=== PATIENT | female | born 1950 | race Caucasian/White ===

== ENCOUNTER 2019-07-31 18:10 | Inpatient (IN) ==
--- NOTE | 2019-07-31 18:39 | PROVIDER DOCUMENTATION ---
This chart was entered by Demario Garza Scribe, acting as scribe for Genet Pino CRNP. HPI-Neurological Disorder - General Chief Complaint: Numbness Stated Complaint: NUMBNESS Time Seen by Provider: 07/31/19 18:22 Source: patient Allergies/Adverse Reactions: Patient Allergies Allergy/AdvReac Type Severity Reaction Status Date / Time cefazolin sodium * Allergy SHORTNESS Verified 06/19/14 19:18 [From Ancef] OF BREATH codeine Allergy SHORTNESS Verified 06/19/14 19:18 OF BREATH duloxetine [From Cymbalta] Allergy SHORTNESS Verified 10/30/17 14:16 OF BREATH gabapentin Allergy SHORTNESS Verified 10/30/17 14:16 OF BREATH oxycodone HCl * [From Tylox] Allergy SHORTNESS Verified 06/19/14 19:18 OF BREATH Penicillins Allergy SHORTNESS Verified 06/19/14 19:18 OF BREATH Home Medications: Home Medication List Medication Instructions Recorded Confirmed Last Taken Type Hydrocodone/Acetaminophen [[place] 1 tab PO Q4-6H PRN PRN 06/16/14 06/19/14 06/19/14 History 7.5-325 Tablet] Omeprazole 40 mg PO DAILY 06/16/14 06/19/14 06/19/14 History Rivaroxaban [Xarelto] 20 mg PO DAILY 06/16/14 06/19/14 06/19/14 History Esomeprazole [Nexium] 40 mg PO DAILY 06/19/14 06/19/14 06/19/14 History Methocarbamol [Robaxin-750] 750 mg PO TID 06/19/14 06/19/14 06/19/14 History Sulfamethoxazole/Trimethoprim 1 each PO BID #14 tablet 06/19/14 Unknown Rx [Bactrim Ds Tablet] - History of Present Illness-Neuro Nature of Presenting Problem: 69 y/o F presents to the ED c/o left sided arm weakness, left sided arm numbness and left sided facial numbness. Patient reports symptoms started x1 week ago and were intermittent but worsened around 4-5 hours ago. Patient has a known history of Carotid artery disease and PTE. Patient denies chest pain, shortness of breath, headache, dizziness and all other symptoms. Severity: reports: moderate Onset/Duration: reports: 1 week ago Timing: reports: intermittent, getting worse Context: reports: none Any recent trauma/injury?: reports: none New weakness or altered sensation location:: reports: LUE Cognitive Baseline: alert, oriented x3 Gait Baseline: walks without assistance Associated Symptoms: reports: weakness Similar Symptoms Previously?: Yes Recently seen or treated by another doctor?: No Review of Systems - Adult - REVIEW OF SYSTEMS - ADULT Constitutional: denies: chills, fever Eyes: reports: no symptoms reported. denies: see HPI, discharge, dry eyes, decreased vision, blurred vision, double vision, eye pain, redness, other Ears, Nose, Mouth & Throat: reports: no symptoms reported. denies: see HPI, ear discharge, ear pain, hearing loss, tinnitus, epistaxis, sinus problem, nose pain, loose teeth, mouth/dental pain, mouth swelling, hoarseness, throat pain, throat swelling, other Cardiovascular: reports: no symptoms reported Respiratory: reports: no symptoms reported. denies: shortness of breath, wheezing Gastrointestinal: reports: no symptoms reported. denies: diarrhea, nausea, vomiting Genitourinary: reports: no symptoms reported Musculoskeletal: reports: see HPI Integumentary: reports: no symptoms reported. denies: see HPI, hives, hair loss, itching, mole changes, nail changes, rash, skin sores/ulcer, skin thickening, other Neurological: reports: see HPI, numbness (left arm; left side of face), other (left arm weakness). denies: dizziness/vertigo, headache/migraines Psychiatric: reports: no symptoms reported. denies: see HPI, anxiety, anti-depressant use, alcohol/drug dependence, depression, emotional problems, insomnia, panic attacks, suicidal thoughts, other Endocrine: reports: no symptoms reported. denies: see HPI, change in skin pigment, excessive sweating, goiter, cold intolerance, heat intolerance, increased hunger, increased thirst, polyuria, other Hematologic/Lymphatic: reports: blood clots (hx of). denies: no symptoms reported, see HPI, easy bruising, low blood count, lymphedema, prolonged bleeding, swollen lymph nodes, transfusions, other Allergic/Immunologic: reports: no symptoms reported. denies: see HPI, allergic reactions, allergic rhinitis, asthma, eczema, food allergy, frequent infections, hay fever, hives, positive PPD, urticaria, other Past History - Adult - PAST MEDICAL HISTORY-ADULT Review of Records: reports: Nursing Assessment Review, Medications Reviewed, Social history reviewed & non-contributory. Major Childhood Illnesses: reports: denies history Cardiovascular: reports: denies history Respiratory: reports: denies history Gastrointestinal: reports: denies history Obstetrical/Gynecological: reports: denies history Genitourinary: reports: denies history Musculoskeletal: reports: neck/back injury (bulging l4 and l5) Neurological: reports: TIA Endocrine/Immune: reports: other (bilateral PEs) Other Conditions: reports: denies history - PRIOR SURGERIES/PROCEDURES Surgical/Procedure History: reports: appendectomy, cholecystectomy, hysterectomy , gastric bypass, other (cysts removed from bilateral breasts) - IMMUNIZATION STATUS Childhood Immunizations: See Nurse Assessment Flu Vaccine: See Nurse Assessment - FAMILY HISTORY Family History: reviewed, not pertinent - SOCIAL HISTORY Smoking: quit greater than 1 year Physical Exam- Neurological - Physical Exam-Neuro Initial Vital Signs Reviewed: Yes General Appearance: alert, no apparent distress Eye Exam: bilateral eye: normal inspection, PERRL, EOMI HENMT: moist mucous membranes, normal ENT inspection Head Injury: no evidence of injury. 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 II-XII nml as tested Integumentary: normal color, warm/dry Psych/Mental Status: normal mood/affect, oriented x 3 Progress - PLAN OF CARE/RESULTS Progress/Plan/Lab Results: Vital Signs - 8 hr 07/31/19 18:17 Temperature 98.0 F Pulse Rate 87 Respiratory Rate 18 Blood Pressure 111/61 O2 Sat by Pulse Oximetry 95 Laboratory Results - last 24 hr 07/31/19 07/31/19 07/31/19 18:50 18:50 18:50 WBC 8.44 RBC 4.35 Hgb 12.1 Hct 38.9 MCV 89.4 MCH 27.8 MCHC 31.1 L RDW Std Deviation 13.4 Plt Count 224 MPV 10.5 H Immature Gran % (Auto) 0.1 Neut % (Auto) 59.5 Lymph % (Auto) 27.4 [place] % (Auto) 9.4 H Eos % (Auto) 2.8 Baso % (Auto) 0.8 Immature Gran # (Auto) 0.01 Neut # (Auto) 5.02 Lymph # (Auto) 2.31 [place] # (Auto) 0.79 H Eos # (Auto) 0.24 Baso # (Auto) 0.07 PT 11.8 INR 0.83 PTT (Actin FS) 21.6 L Sodium 140 Potassium 3.8 Chloride 109 H Carbon Dioxide 20 L Anion Gap 11 BUN 11 Creatinine 0.7 Estimated GFR/1.73 m2 > 60 BUN/Creatinine Ratio 16 Glucose 75 Calculated Osmolality 277 Calcium 8.6 L Total Bilirubin 0.20 AST 29 ALT 30 Alkaline Phosphatase 99 Troponin T High Sens Total Protein 7.1 Albumin 4.3 Globulin 3.0 Albumin/Globulin Ratio 2.0 07/31/19 18:50 WBC RBC Hgb Hct MCV MCH MCHC RDW Std Deviation Plt Count MPV Immature Gran % (Auto) Neut % (Auto) Lymph % (Auto) [place] % (Auto) Eos % (Auto) Baso % (Auto) Immature Gran # (Auto) Neut # (Auto) Lymph # (Auto) [place] # (Auto) Eos # (Auto) Baso # (Auto) PT INR PTT (Actin FS) Sodium Potassium Chloride Carbon Dioxide Anion Gap BUN Creatinine Estimated GFR/1.73 m2 BUN/Creatinine Ratio Glucose Calculated Osmolality Calcium Total Bilirubin AST ALT Alkaline Phosphatase Troponin T High Sens 8 Total Protein Albumin Globulin Albumin/Globulin Ratio Orders Category Date Time Status [facility] Routine AdmDCTranf 07/31/19 19:24 Active Activity - Bed Rest with BRP ORDERED Care 07/31/19 19:24 Active Cardiac Monitoring DIRECTED Care 07/31/19 18:28 Active Finger Stick Blood Sugar (ED) DIRECTED Care 07/31/19 18:28 Active Misc. NRSG Communication Order DIRECTED Care 07/31/19 18:28 Active Neurological Check Q4H Care 07/31/19 19:25 Active Saline Loc DIRECTED Care 07/31/19 19:24 Active Saline Loc NOW Care 07/31/19 18:28 Active Vital Signs Order ROUTINE Care 07/31/19 19:24 Active Heart Healthy Diet Diet 07/31/19 19:25 Active CHEST-PORTABLE [RAD] Stat Exams 07/31/19 18:[address] HEAD W/O CONTRAST [CT] Stat Exams 07/31/19 18:28 Completed CBC WITH ELECTRONIC DIFF [HEME] Stat Lab 07/31/19 18:50 Completed COMPREHENSIVE METABOLIC PANEL [CHEM] Stat Lab 07/31/19 18:50 Completed PROTIME WITH INR [COAG] Stat Lab 07/31/19 18:50 Completed PTT [COAG] Stat Lab 07/31/19 18:50 Completed TROPONIN T HIGH SENSITIVITY Stat Lab 07/31/19 18:50 Completed URINALYSIS W/POSS RFLX CULT [URINALYSIS] Stat Lab 07/31/19 18:28 Uncollected URINE DRUG SCREEN PL Stat Lab 07/31/19 18:28 Uncollected EKG [EKG] Stat Ther 07/31/19 18:28 Ordered Transfer/Admit Order [TRANSFER] Routine Transfer 07/31/19 19:25 Ordered PT IS NOT A CANDIDATE FOR TPA DUE TO ONSET OF SYMPTOMS INITIALLY ONE WEEK AGO AND ON RETURN OF SYMPTOMS > 4 HOURS 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 There are granulomata in the right upper lobe. Compared to 06/16/2014 there has been no significant change. IMPRESSION: COPD. Electronically signed by Brendan Matta 07/31/2019 7:05 PM [id number]/31/[id number] Interpreting Physician: Brendan Matta MD Dictated Date/Time: 07/31/191904 cc: Genet Pino; Ole Merritt MD) - CT/MRI 1 CT Study: Head Impression: See EMR Report ( EXAM: CT HEAD W/O CONTRAST 07/31/2019 HISTORY: CVA TECHNIQUE: This exam was performed using automated exposure control, adjustment of mA or kV according to patient size, and/or use of iterative reconstruction technique. COMMENT: There are patchy lucencies in the subcortical and periventricular white matter of both hemispheres. There is no evidence of mass effect, bleed or abnormal extra-axial fluid collection. There is mucosal thickening in the left sphenoid sinus and fluid. This was not the case on 03/30/2014. IMPRESSION: Chronic ischemic microvascular changes. Left sphenoid sinusitis. Electronically signed by Brendan Matta 07/31/2019 7:03 PM 07/31/[id number] Interpreting Physician: Brendan Matta MD Dictated Date/Time: 07/31/191900 cc: Genet Pino; Ole Merritt MD) - CONSULTS/PCP/HOSPITALIST Notification #1 *Consult/PCP/Hospitalist*: DR HAMMOND AT BEDSIDE Time Discussed: 18:30 Consult Disposition: Admit Departure - Departure Date of Disposition Decision: 07/31/19 Time of Disposition Decision: 19:15 DIAGNOSIS: Left-sided weakness Disposition: ADMITTED INPATIENT 09 Certified Medical Emergency: Emergent Condition: Stable Referrals and Follow-Ups: Ole Merritt MD [Primary Care Provider] - - Critical Care Note This patient required my direct & personal management of CC.: No Attestation - Physician/ ROZ Attestation Patient care was provided by Advanced Practice Provider:: Yes Advanced Practice Provider:: Genet Pino Advanced Practice Provider documentation review:: The Mid-level provider documentation, treatment plan and medical decision making was reviewed by the physician who agrees with all treatment and medical decision making by the MLP. The physician spent face to face time with patient:: No Advanced Practice Provider documentation review:: Supervising physician onsite and consulted in the evaluation and care of this patient. The physician did not have a face to face encounter with the patient. - NIH Stroke Scale NIH Type: Initial Evaluation Level of Consciousness: 0-Alert LOC Questions (ask month and age): 0-Answers Both Correctly LOC Commands (ask to open & close eyes;make a fist, let go): 0-Obeys Both Correctly Best Gaze (horizontal eye movement): 0-Normal Visual (use finger movement, counting or visual threat): 0-No Visual Loss Facial Palsy (show teeth or raise eyebrows & close eyes tght: 0-Symmetrical Mo vement Motor Function-left arm: 1-Drift Motor Function-right arm: 0-Normal Motor Function-left le-Normal Motor Function-right le-Normal Limb Ataxia(ridgfn-srkx-cpqwnf, or heel to morel): 1-Present in one limb Sensory(pin prick to face,arms,trunk,legs-compare side/side): 0-No Ataxia Best Language(name item/read sentence.Ex-Down to Earth): 0-No Aphasia Dysarthria(Pt read words or say words Ex.Mama,Tip-Top,Thanks: 0-Normal Articulation Extinction and Inattention: 0-Normal NIH Total Score: 3 This chart was documented by the indicated scribe, (Demario Garza, Scribe) and accurately reflects the services I performed and decisions made by me, Genet Pino CRNP, as attested by the provider's signature.
[2019-07-31 18:59] LABS: BASO# 0.07 X1000 (0.0-0.2); BASO% 0.8 % (0.0-0.8); EOS# 0.24 X1000 (0.0-0.7); EOS% 2.8 % (0.0-10.0); HEMATOCRIT 38.9 % (37.0-47.0); HEMOGLOBIN 12.1 g/dL (12.0-16.0); IMM GRAN# 0.01 X1000 (0.0-0.04); IMM GRAN% 0.1 % (0.0-0.5); LYMPH# 2.31 X1000 (1.2-3.4); LYMPH% 27.4 % (20.5-51.1); MCH 27.8 PG (27-31); MCHC 31.1 g/dL (33-37); MCV 89.4 FL (81-99); MONO# 0.79 X1000 (0.11-0.59); MONO% 9.4 % (1.7-9.3); MPV 10.5 FL (7.4-10.4); NEUT# 5.02 X1000 (1.4-6.5); NEUT% 59.5 % (42.2-75.2); PLT 224 X1000 (130-400); RBC 4.35 XMIL (4.2-5.4); RDW 13.4 % (11.5-14.5); WBC 8.44 X1000 (4.8-10.8)
--- NOTE | 2019-07-31 19:06 | Diag Imaging Result Doc PS360 ---
EXAM: CT HEAD W/O CONTRAST 07/31/2019 HISTORY: CVA TECHNIQUE: This exam was performed using automated exposure control, adjustment of mA or kV according to patient size, and/or use of iterative reconstruction technique. COMMENT: There are patchy lucencies in the subcortical and periventricular white matter of both hemispheres. There is no evidence of mass effect, bleed or abnormal extra-axial fluid collection. There is mucosal thickening in the left sphenoid sinus and fluid. This was not the case on 03/30/2014. IMPRESSION: Chronic ischemic microvascular changes. Left sphenoid sinusitis. Electronically signed by Brendan Matta 07/31/2019 7:03 PM
--- NOTE | 2019-07-31 19:08 | Diag Imaging Result Doc PS360 ---
EXAM: CHEST-PORTABLE 07/31/2019 HISTORY: CVA TECHNIQUE: AP portable at 1907 COMMENT: There is COPD. There are granulomata in the right upper lobe. Compared to 06/16/2014 there has been no significant change. IMPRESSION: COPD. Electronically signed by Brendan Matta 07/31/2019 7:05 PM
[2019-07-31 19:12] LABS: INR 0.83; PROTIME 11.8 Seconds (11.0-16.0)
[2019-07-31 19:13] LABS: PTT 21.6 Seconds (22.3-41.8)
[2019-07-31 19:17] LABS: AGAP 11; ALBUMIN 4.3 g/dL (3.5-5.0); ALKALINE PHOSPHATASE 99 U/L (32-104); BUN 11 mg/dL (8-22); CALCIUM 8.6 mg/dL (8.8-10.2); CHLORIDE 109 mmol/L (98-107); COSMO 277; CREATININE 0.7 mg/dL (0.5-0.9); ESTIMATED GFR > 60; GLUCOSE 75 mg/dL (70-104); GOT 29 U/L (10-30); GPT 30 U/L (10-36); POTASSIUM 3.8 mmol/L (3.5-5.1); SODIUM 140 mmol/L (136-145); TCO2 20 mmol/L (25-35); TOTAL PROTEIN 7.1 g/dL (6.3-8.3)
[2019-07-31 19:34] LABS: URINE SOURCE CLEAN CATCH
[2019-07-31 19:38] LABS: BILIRUBIN URINE NEGATIVE (NEGATIVE); BLOOD URINE NEGATIVE (NEGATIVE); COLOR YELLOW; GLUCOSE URINE 70 mg/dL (NEGATIVE); KETONE URINE NEGATIVE (NEGATIVE); LEUKOCYTES URINE SMALL (NEGATIVE); NITRITE URINE POSITIVE (NEGATIVE); PROTEIN URINE NEGATIVE (NEGATIVE); SP GRAVITY URINE 1.013; TURBIDITY URINE HAZY (CLEAR); UR EPITHELIAL CELLS <10 /HPF (<10); URINE BACTERIA 4+ /HPF; URINE RBC <10 /HPF (<10); UROBILINOGEN URINE NORMAL (NORMAL)
[2019-07-31 19:49] LABS: UR AMPHETAMINES QUAL NONE DETECTED (NONE DETECT); UR BARBITUATES QUAL NONE DETECTED (NONE DETECT); UR BENZODIAZEPIN QUAL NONE DETECTED (NONE DETECT); UR CANNABINOIDS QUAL NONE DETECTED (NONE DETECT); UR METHADONE QUAL NONE DETECTED (NONE DETECT); UR METHAMPHETAMINE QUAL NONE DETECTED (NONE DETECT); UR OPIATES QUAL PRESUMPTIVE POSITIVE (NONE DETECT); UR OXYCODONE QUAL NONE DETECTED (NONE DETECT); UR PCP QUAL NONE DETECTED (NONE DETECT); UR PROPOXYPHENE QUAL NONE DETECTED (NONE DETECT); UR TCA QUAL NONE DETECTED (NONE DETECT)
[2019-07-31 19:59] LABS: UR COCAINE QUAL NONE DETECTED (NONE DETECT)
[2019-07-31] MEDS: SEPTRA DS PO SCH (22:25)
--- NOTE | 2019-08-01 05:30 | EKG Report ---
Test Performed on : 07/31/2019 7:27:33 PM Test Reason : CVA Blood Pressure : / mmHG Vent. Rate : 081 BPM Atrial Rate : 081 BPM P-R Int : 140 ms QRS Dur : 072 ms QT Int : 364 ms P-R-T Axes : 057 059 078 degrees QTc Int : 422 ms Normal sinus rhythm. Nonspecific ST and T wave abnormality Abnormal ECG When compared with ECG of 17-JUN-2014 05:44, T wave inversion no longer evident in Anterior leads Unconfirmed Result
[2019-08-01] MEDS ORDERED: ZOFRAN IV PRN (08:49)
[2019-08-01] MEDS ORDERED: TYLENOL PO PRN (08:49)
[2019-08-01] MEDS ORDERED: FLU VACCINE IM ONE (09:00)
[2019-08-01] MEDS: CIPRO PO SCH ×2 (09:37→20:49)
[2019-08-01] MEDS: SEPTRA DS PO SCH ×2 (09:37→20:49)
[2019-08-01] MEDS: PAXIL PO SCH (09:38)
[2019-08-01] MEDS: ROBITUSSIN-DM PO PRN ×2 (10:56→17:41)
--- NOTE | 2019-08-01 12:55 | Vascular Study Report ---
EXAM: Carotid Ultrasound 07/31/2019 HISTORY: CVA TECHNIQUE: Carotid Doppler ultrasound COMMENT: There is some calcification in the right carotid bulb and heavy calcification in the external carotid on the right. There is calcific plaque in the proximal right internal carotid artery. Calcified plaque is also present in the left carotid bulb and proximal internal carotid. There is a peak systolic velocity of 256 cm/s in the proximal right internal carotid artery. This is consistent with a high-grade stenosis between 80-99%. There is a peak systolic velocity of 111 cm/s in the mid left internal carotid artery consistent with a stenosis of 40-59%. There is antegrade flow in both vertebral arteries. IMPRESSION: Stenosis of both internal carotid arteries, significantly on the right. Electronically signed by Brendan Matta 08/01/2019 12:53 PM
--- NOTE | 2019-08-01 14:56 | PROGRESS NOTE ---
DATE: 08/01/2019 SUBJECTIVE: Patient states overall she is feeling better. She has got more movement of her left hand, but still has some weakness. Notes that the numbness on her left cheek seems to have returned. Has no real weakness in her left lower extremity or in the remainder of her left upper extremity. PHYSICAL EXAMINATION: Vital Signs: Reviewed. Temperature 98 degrees, pulse 79, respiratory rate 18, blood pressure 109/46. General: Patient is awake, pleasant, in no distress. HEENT: Normocephalic. Neck: Supple. Cardiovascular: Regular rate. Chest: Clear. Abdomen: Soft. Extremities: Moves all extremities. 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 Neurologic: She is awake, alert, oriented. Tongue thrust normal. Speech is regular. Memory is intact. ASSESSMENT: 1. Cerebrovascular accident. 2. Carotid blockage. PLAN: We are going to continue patient in the hospital. Check carotid echo. Follow her blood pressures. Check cholesterol. Get Physical therapy involved. cc: Mukul Mckay MD MTDD
--- NOTE | 2019-08-01 15:40 | HISTORY AND PHYSICAL ---
CHIEF COMPLAINT: Left-sided weakness. HISTORY OF PRESENT ILLNESS: The patient is a very pleasant 69-year-old female who presented to the ER and was seen and examined by myself in the ER on the date of admission. She was noted to have some left hand weakness although she was able to move her biceps, triceps and deltoid with minimal issues. At that point, the left-sided numbness on her lower cheek had resolved. ALLERGIES: Ancef, codeine, Cymbalta, gabapentin, oxycodone and penicillin, all causing shortness of breath. MEDICATIONS: Do not have an active medication list, although in the past she has been on Xarelto and blood pressure medicine. PAST MEDICAL HISTORY: Patient notes that her blood pressure and cholesterol have been normal. Does note that she had bilateral PEs in the past for which she was on Xarelto. She has had a bulging disk at L4-L5. She has had a TIA in the past. States that she has been told she had some carotid blockage but was not severe enough for surgery. PAST SURGICAL HISTORY: She has an appendectomy, cholecystectomy, hysterectomy, gastric bypass, and cyst removal of bilateral breasts. FAMILY HISTORY: Noncontributory. No family history of strokes, although does have a family history of high blood pressure. SOCIAL HISTORY: Patient stopped smoking greater than a year ago. Does not drink or use illicit substances. REVIEW OF SYSTEMS: She denies any fevers, chills, cough, congestion. Denies any headaches, blurred vision, change in vision. Does have focal weakness and numbness of her left hand. States her leg is fine. Denies any dysuria, frequency, urgency, constipation, melena, hematochezia. PHYSICAL EXAMINATION: VITAL SIGNS: Reviewed. Temperature 98 degrees, pulse 87, respiratory rate 18, blood pressure 111/61. GENERAL: Patient is awake, alert. She is pleasant. She is in no current respiratory distress. HEENT: Normocephalic. NECK: Supple. CARDIOVASCULAR: Regular rate. CHEST: Clear, nonlabored. ABDOMEN: Soft, nondistended. SKIN: Warm, dry. No rashes. EXTREMITIES: She moves her right upper and bilateral lower extremities without any difficulty. 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 No appreciable strength in her biceps, triceps, or deltoid. ASSESSMENT: 1. Acute cerebrovascular accident of undetermined origin. 2. History of carotid blockage. We are going to recheck. 3. Her CT shows chronic ischemic microvascular changes with left sphenoid sinusitis. PLAN: We are going to admit her to the hospital, IV fluids. She certainly may have a urinary tract infection. We are going to place her on Cipro. Follow her blood pressures, recheck her carotid, echo and check the cholesterol. cc: Mukul Mckay MD
[2019-08-02 05:39] LABS: HEMATOCRIT 40.2 % (37.0-47.0); HEMOGLOBIN 12.6 g/dL (12.0-16.0); MCHC 31.3 g/dL (33-37); MCV 89.3 FL (81-99); MPV 10.5 FL (7.4-10.4); RBC 4.5 XMIL (4.2-5.4); RDW 13.4 % (11.5-14.5); WBC 7.04 X1000 (4.8-10.8)
[2019-08-02 06:17] LABS: AGAP 14; ALBUMIN 4.2 g/dL (3.5-5.0); ALKALINE PHOSPHATASE 99 U/L (32-104); BUN 11 mg/dL (8-22); CALCIUM 9.2 mg/dL (8.8-10.2); CHLORIDE 104 mmol/L (98-107); CHOLESTEROL 164 mg/dL (0-200); COSMO 279; CREATININE 0.9 mg/dL (0.5-0.9); ESTIMATED GFR > 60; GLUCOSE 102 mg/dL (70-104); GOT 23 U/L (10-30); GPT 25 U/L (10-36); HDL 79 mg/dL (45-65); LDL 68 mg/dL; MAGNESIUM 2.1 mg/dL (1.5-2.7); POTASSIUM 4.1 mmol/L (3.5-5.1); SODIUM 140 mmol/L (136-145); TCO2 22 mmol/L (25-35); TRIGLYCERIDES 87 mg/dL (35-135); VLDL 17 mg/dL
--- NOTE | 2019-08-02 08:29 | ECHO REPORT ---
ORDER DATE: 07/31/2019 INTERPRETING PHYSICIAN: Dr. Morton REQUESTING PHYSICIAN: Hospitalist CLINICAL INDICATIONS: This is a 69-year-old female with stroke. M-MODE MEASUREMENTS: Right ventricle: cm. Left ventricle end diastole: 4.1 cm. Left ventricle end systole: 2.5 cm. Posterior wall: 0.9 cm. Interventricular septum: 1.0 cm. Left atrium: 3.2 cm. Aortic root: 3.1 cm. SUMMARY OF 2-DIMENSIONAL IMAGIN. The left ventricular function is excellent. The ejection fraction is 65% to 70%. No wall motion abnormality is noted. 2. Right-sided chambers are normal. 3. The left atrium does not appear to be significantly enlarged. 4. This study was difficult. 5. Aortic valve shows mild degree of sclerosis. There is no stenosis or regurgitation. 6. Tricuspid valve showed no significant abnormality. 7. Pulmonary pressure is probably normal. 8. Inferior vena cava is not dilated. 9. Mitral valve looks grossly normal. 10.Pulse wave Doppler of mitral inflow shows mild reversal of the E and the A ratio. 11.Tissue Doppler of septal and lateral mitral annulus averages 5 cm. 12.There is impaired left ventricular relaxation. 13.Pulmonic valve is grossly unremarkable. 14.There is no evidence of masses or thrombus. 15.Epicardial fat pad is noted. Clinical correlation is recommended. cc: Florencio Morton MD
[2019-08-02] MEDS: PAXIL PO SCH (09:53)
[2019-08-02] MEDS: SEPTRA DS PO SCH ×2 (09:53→20:48)
[2019-08-02] MEDS: ROBITUSSIN-DM PO PRN ×2 (10:02→19:49)
--- NOTE | 2019-08-02 11:35 | Diag Imaging Result Doc PS360 ---
EXAM: CT HEAD W/O CONTRAST 08/02/2019 HISTORY: new right sided symptoms TECHNIQUE: This exam was performed using automated exposure control, adjustment of mA or kV according to patient size, and/or use of iterative reconstruction technique. COMMENT: There are calcifications in the internal carotid arteries bilaterally. There are patchy lucencies in the white matter of both hemispheres consistent with chronic ischemic microvascular white matter change. Compared to 07/31/2019 there has been no significant change. There is some mucosal thickening and fluid present in the ethmoid air cells bilaterally. There is near complete opacification of the left sphenoid sinus. The calvarium is intact. IMPRESSION: Chronic ischemic microvascular changes. Given the chronic findings further evaluation with MRI may be desirable. Sinusitis as described. Electronically signed by Brendan Matta 08/02/2019 11:32 AM
--- NOTE | 2019-08-02 13:44 | PROGRESS NOTE ---
DATE: 08/02/2019 SUBJECTIVE: Patient notes that she had some right hand numbness earlier but this is better. Now she thinks her hand may have simply been asleep. Still having left hand weakness and right thigh weakness. PHYSICAL: Temperature 98 degrees, pulse 75, respiratory 18, BP 115/54.General: Patient is awake, pleasant, she is in no distress. HEENT: Normocephalic. Neck: Supple. CV: Regular rate. Chest: Clear nonlabored. Abdomen: Soft, nondistended. Extremities: She moves her right upper and lower extremities with no issues. Left lower extremity is a little weak. 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 ASSESSMENT: 1. Carotid stenosis right greater than left. Right is 80 to 99 percent. She has seen Dr. Santos at the [facility] in the past and was told her carotid blockage was not severe enough for surgical intervention. Given that she is now had stroke we certainly will reconsult him for further discussion on surgical intervention. 2. Urinary tract infection, culture still growing. She is on Bactrim. 3. Acute cerebrovascular accident . PLAN: Will continue physical therapy, supportive care and will follow. cc: Mukul Mckay MD
[2019-08-03] MEDS: ROBITUSSIN-DM PO PRN (07:11)
[2019-08-03] MEDS ORDERED: XANAX PO ONE (09:45)
[2019-08-03] MEDS: PAXIL PO SCH (10:08)
[2019-08-03] MEDS: LEVAQUIN PO SCH (10:10)
--- NOTE | 2019-08-03 11:56 | Diag Imaging Result Doc PS360 ---
EXAM: MRI BRAIN W/O CONTRAST HISTORY: CVA TECHNIQUE: MRI brain without contrast. Axial, sagittal, and: Images obtained in multiple sequences COMPARISON: None. FINDINGS: There are areas of increased signal posteriorly in the right parietal lobe and to a lesser extent posteriorly in the right occipital lobe on the diffusion images. Prominent deep white matter increased signal on the T2 and inversion recovery images. No hydrocephalus. No mass or midline shift. No epidural or subdural fluid collection. There is opacification of the left sphenoid sinus with mild mucosal thickening in several of the sinuses. IMPRESSION: Small recent right-sided posterior parietal and occipital infarcts with prominent chronic microvascular ischemic changes. Electronically signed by Rolan Pal 08/03/2019 11:53 AM
--- NOTE | 2019-08-03 19:14 | PROGRESS NOTE ---
DATE: 08/03/2019 SUBJECTIVE: Patient notes she is still having some left-sided weakness in her hand. Her left eye is actually improving. OBJECTIVE: Vital signs: Temperature 98 degrees, pulse 75, BP 115/54. General: Patient is awake. She is pleasant. She is in no distress. HEENT: Normocephalic. Neck: Supple. Cardiovascular: Regular rate. Chest: Clear, nonlabored. Abdomen: Soft, nondistended. Extremities: Moves all extremities. Neurologic: She has no focal changes, although she does have some mild improvement in her left thigh weakness as well as her left hand weakness. ASSESSMENT: 1. Urinary tract infection, growing Klebsiella. We are going to switch her back to Cipro as it is sensitive to this. 2. Acute cerebrovascular accident. The patient does have a small recent right-sided posterior parietal and occipital infarct on her MRI. 3. Carotid stenosis, right greater than left at 80% to 99%. PLAN: We are going to continue the patient in the hospital. Did discuss with her that it would be in her best interest to go to [facility] for aggressive physical therapy. She did finally reluctantly agree to do so; however, they do not have a bed today. We talked to Dr. Santos's office, and they want her to keep her appointment on Saturday. We will continue her in the hospital today, continue physical therapy, and we will follow. cc: Mukul Mckay MD
[2019-08-04 07:57] VITALS: BP 108/65
[2019-08-04] MEDS: LEVAQUIN PO SCH (10:34)
[2019-08-04] MEDS: PAXIL PO SCH (10:34)
--- NOTE | 2019-08-05 10:09 | DISCHARGE SUMMARY ---
ADMISSION DATE: 07/31/2019 DISCHARGE DATE: 08/04/2019 ADMITTING DIAGNOSES: 1. Acute cerebrovascular accident. 2. History of carotid blockage. DISCHARGE DIAGNOSES: 1. Acute cerebrovascular accident. 2. Urinary tract infection growing Klebsiella. 3. Carotid stenosis. PROCEDURES AND FINDINGS: Head CT done on 07/31/2019 shows chronic ischemic microvascular changes and left sphenoid sinusitis. Head CT done on 08/02/2019 shows chronic ischemic microvascular changes and sinusitis. MRI shows small recent right-sided posterior parietal and occipital infarct with prominent chronic microvascular ischemic change. Carotid Doppler study shows stenosis of both internal carotid arteries. The right is between 80% and 99%, and the left is 40% to 59%. HOSPITAL COURSE: Ms. Navarrete is a 69-year-old female who presented to the ER. She was noted to have severe left hand weakness. She was unable to move the hand, but she was able to move her biceps, triceps, and deltoid. She was also noted have left-sided numbness. The patient is noted to have some history of carotid stenosis, and has had a history of PEs and was on Xarelto. The patient was admitted to the medical floor for acute CVA of undetermined origin. Carotid ultrasound was obtained. CTs were obtained, but they were essentially negative initially. We were waiting for MRI. Since it was the weekend, we had to wait for Saturday for the MRI to be open. The patient was started on IV fluids. The patient was noted to have a urinary tract infection. A culture was sent off. The patient was started on Cipro. The patient did get some more movement to her left hand, but she still remained to be weak. The numbness seemed to go away to her cheek. There was no real weakness noted to her lower extremity; it was just mostly in the upper extremity. Urinary tract infection was noted to be growing Klebsiella. Cipro was continued. MRI was noted to show a recent right-sided posterior parietal and occipital infarct. The patient does see Dr. Santos, vascular doctor at [facility]. She does have an appointment scheduled for Saturday of this coming week. The patient was wanting to go to physical therapy at rehab at [facility], and the patient was getting ready for discharge. We were unable to obtain a bed at [facility]. The patient is wanting to keep her appointment with Dr. Santos, so the patient is agreeable to go home with home health with [facility] so she can keep her appointment with Dr. Santos and have physical therapy at home. The patient is being discharged home today. She will have her appropriate with Dr. Santos tomorrow. The patient will continue home medications. We are going to order Levaquin for her UTI. She will also need to follow up with Dr. Campbell, her primary care physician, in 1 to 2 weeks. DISCHARGE MEDICATIONS: 1. Vitamin B12, 1000 mg IM every month. 2. Phenylephrine acetaminophen 1 tablet p.o. t.i.d. 3. Paxil 10 mg p.o. daily. 4. Vitamin D3, 2000 units p.o. daily. 5. Levaquin 500 mg p.o. daily. DISCHARGE DIET: The patient is to resume a healthy heart diet as tolerated. DISCHARGE ACTIVITY: The patient is to resume activity as tolerated. She does have [facility] home health with physical therapy ordered. DISCHARGE DISPOSITION: The patient is discharged home with [facility] home health and physical therapy. She is to follow up with her primary care physician, Dr. Ole Campblel, in 1 to 2 weeks. She is to call and schedule this appointment. She is supposed to follow up with Dr. Santos at [facility] tomorrow at her regular scheduled appointment. She is to notify her primary care physician, Dr. Ole Campbell, for any other questions or concerns. Dictated by AUDI Beck for Mukul Mckay MD cc: MD Dr. Ole Garrett [facility]
--- NOTE | 2019-08-08 03:42 | DISCHARGE SUMMARY ---
ADMISSION DATE: 07/31/2019 DISCHARGE DATE: 08/04/2019 DISCHARGE DIAGNOSIS: 1. Klebsiella urinary tract infection, currently on Cipro. 2. Acute cerebrovascular accident with right posterior parietal and occipital infarct. 3. History of carotid blockage. She has 80%-99% blockage on her left carotid. CONSULTATIONS: We did speak to Dr. Santos, her vascular surgeon over the phone. PROCEDURES: MRI and carotid ultrasound. BRIEF HOSPITAL COURSE: Patient is a very pleasant 69-year-old female who presented to the hospital with left-sided weakness. On discharge, she is still continuing to have some left hand weakness and left thigh weakness. Although both of these have improved they certainly have not resolved. During the workup, she was noted to have an MRI with a right parietal and occipital infarct as well as carotid ultrasound which demonstrated right-sided 80%-90% blockage. Physical Therapy was consulted. We continued this through the hospital stay. She was also noted to have a Klebsiella urinary tract infection, was initially placed on Bactrim and then switched to Cipro after sensitivities. DISPOSITION: Patient will be discharged home. We prefer her to go to rehab although bed currently was not available and she declined waiting in the hospital until such time. She is to follow up tomorrow morning actually with her surgeon, Dr. Santos, to evaluate her carotids and when surgery would be appropriate. She will continue Cipro for a total of 7-day course. Continue Home Health physical therapy. TIME SPENT: Greater than 30 minutes was spent in total care. She will continue her other medications as listed. cc: Mukul Mckay MD
== END 2019-08-04 14:10 | disposition home health service (06) | DRG 65 ==
LOC: P.ED 18:10 → P.MEDSURG 20:35
PROVIDERS: ATTEND Family Medicine